=== PATIENT | male | born 1955 | race Caucasian/White ===

== ENCOUNTER → 2024-12-03 13:29 | Outpatient (CLI) | payer MEDICARE, OTHER, SELFPAY ==
--- NOTE | 2024-12-03 13:38 | DI.MRI.S_ITS ---
PROCEDURE: MR LUMBAR SPINE WO CON INDICATIONS: MRI TECHNIQUE: Noncontrast sagittal T1 spin echo and T2 fast echo, sagittal STIR, and T2 fast spin echo through the lumbar spine. In cases with scoliosis, additional coronal T2 fast spin echo may be performed. COMPARISON: None. FINDINGS: Image quality: Excellent. Alignment and Curvature: There is normal bony alignment. Bone Marrow: Marrow is of normal overall signal. No acute vertebral body compression fractures. Severe disc space narrowing with degenerative endplate changes throughout the lumbar spine. There is retrolisthesis L3 on L4 and L2 on L3. There are laminectomy changes at L3-L4 and L4-L5. Spinal Cord: Conus medullaris terminates at the L1 level. Visualized cord demonstrates normal signal and size. Paraspinous Soft Tissues: No paravertebral masses. The combination of disc bulging with endplate spurring, ligamentum flavum hypertrophy and advanced facet arthropathy result in the following: T12-L1: Mild bilateral foraminal stenosis. L1-L2: Mild central canal stenosis with moderate bilateral foraminal stenosis. L2-L3: Severe right and moderate left foraminal stenosis. L3-L4: Status post laminectomy. Severe bilateral foraminal stenosis. L4-L5: Status post laminectomy. There is a prominent right paramedian disc protrusion which extends 10 mm beyond the vertebral endplate with subsequent right lateral recess stenosis and obliteration of the right exit foramen. There is obliteration of the left exit foramen. There is encroachment of the right L4 and L5 nerve roots and the left L4 nerve root. L5-S1: Severe right and moderate left foraminal stenosis. IMPRESSION: 1. Complete laminectomy changes at L3-L4 and L4-L5. 2. Multilevel degenerative disc disease which results in varying degrees of foraminal stenosis most pronounced on the right at the L4-L5 level which may contribute to a radiculopathy. Dictated by: Vickie Red M.D. on 12/04/2024 at 13:42 Approved by: Vickie Red M.D. on 12/04/2024 at 13:48
--- NOTE | 2024-12-03 13:39 | DI.CT.S_ITS ---
PROCEDURE: CT CERVICAL SPINE WO CON INDICATIONS: hardware check TECHNIQUE: Noncontrast 3 mm thick sections acquired from the skull base to the T4 level. Sagittal and coronal reformats were then constructed. For radiation dose reduction, the following was used: automated exposure control, adjustment of mA and/or kV according to patient size. COMPARISON: None. FINDINGS: Image quality: Excellent. Bones: No fractures or dislocations. Visualized superior ribs are intact. Status post ACDF at the C3-C7 levels. The hardware is in good position and intact. At C3-C4 there is persistent significant lucency about the intervertebral disc spacer, without osseous fusion especially centrally and posteriorly. At C4-C5 there is also lack of osseous fusion posteriorly. At C5-C6 there is partial lack of osseous fusion posteriorly. At C6-C7 there is complete osseous fusion. Residual multilevel uncinate process hypertrophy and some posterior osteophyte at C5-C6. There is mild central spinal stenosis at C5-C6 as well as moderate right foraminal narrowing in the mid to upper cervical region. Soft tissues: Prevertebral soft tissues are normal in thickness. No paravertebral hematomas. No apical pneumothoraces. IMPRESSION: 1. Postoperative changes as described with lack of osseous fusion especially at C3-C4 and C4-C5. 2. No acute osseous lesions seen. Dictated by: Arpan Valdez M.D. on 12/03/2024 at 19:55 Approved by: Arpan Valdez M.D. on 12/03/2024 at 20:02
== END ==
PROVIDERS: Referring Provider Physician Assistant; Visit Provider Physician Assistant
DX: M47.812 Spondylosis without myelopathy or radiculopathy, cervical region (principal); M48.02 Spinal stenosis, cervical region; M47.816 Spondylosis without myelopathy or radiculopathy, lumbar region; M51.369 Other intervertebral disc degeneration, lumbar region without mention of lumbar back pain or lower extremity pain; M48.061 Spinal stenosis, lumbar region without neurogenic claudication; Z98.1 Arthrodesis status
CPT/HCPCS: 72040; 72100; 72125; 72148

== ENCOUNTER → 2024-12-03 14:38 | Outpatient (CLI) | payer MEDICARE, OTHER, SELFPAY ==
--- NOTE | 2024-12-03 | DI.RAD.S_ITS ---
PROCEDURE: XR LUMBAR SPINE 2-3V INDICATIONS: CERVIAL SPONDYLOSIS TECHNIQUE: 3 views of the lumbar spine were acquired. COMPARISON: None. FINDINGS: Bones: 5 [id number] vertebrae are present. There is normal bony alignment. No vertebral body compression fractures. No suspicious bony lesions. There is laminectomy at the L3 and L4 levels. There is advanced multilevel degenerative disc disease as well as facet arthropathy in the mid to lower lumbar region. Soft tissues: Overlying bowel gas pattern is normal. No suspicious soft tissue calcifications. IMPRESSION: Postoperative and degenerative changes, no focal osseous lesion seen. Dictated by: Arpan Valdez M.D. on 12/03/2024 at 20:03 Approved by: Arpan Valdez M.D. on 12/03/2024 at 20:05
--- NOTE | 2024-12-03 | DI.RAD.S_ITS ---
PROCEDURE: XR CERVICAL SPINE 2V OR 3V INDICATIONS: CERVIAL SPONDYLOSIS TECHNIQUE: 4 view(s) of the cervical spine were acquired. COMPARISON: None. FINDINGS: Bones: No fractures or dislocations to the T1 level. The lateral masses of C1 appear intact on the odontoid view. No suspicious bony lesions. ACDF C3-C7. There is lucency about intervertebral disc spacer at C3-C4, also with lack of fusion seen at C4-C5. Soft tissues: No prevertebral soft tissue swelling. IMPRESSION: ACDF at C3-C7 with lack of osseous fusion at C3-C4 and C4-C5. Dictated by: Arpan Valdez M.D. on 12/03/2024 at 20:02 Approved by: Arpan Valdez M.D. on 12/03/2024 at 20:03
== END ==
PROVIDERS: Referring Provider Physician Assistant; Visit Provider Physician Assistant
DX: M47.812 Spondylosis without myelopathy or radiculopathy, cervical region (principal); M47.816 Spondylosis without myelopathy or radiculopathy, lumbar region; M51.369 Other intervertebral disc degeneration, lumbar region without mention of lumbar back pain or lower extremity pain; Z98.1 Arthrodesis status
CPT/HCPCS: 72040; 72100